=== PATIENT | male | born 1935 | race Caucasian/White ===

== ENCOUNTER 2016-11-07 14:17 | Inpatient (IN) | payer OTHER ==
[~2016-11-07] VITALS: Ht 182.9 cm; Wt 86.2 kg
[~2016-11-07 14:17] MED LIST: ACYCLOVIR400 MG PO; ALENDRONATE SOD70 M2 PO; AMBIEN10 MG PO; AMOXICOT500 MG PO; APAP/HYDROCODON1 T13 PO; BETHANECHOL CHL10 MG PO; CARAFATE1 GM PO; CAT0.1 PO; CLARITIN10 MG PO; CLINDAMYCIN HC300 MG PO; CLONIDINE HCL0.1 MG PO; EVISTA60 MG PO; FLO4 PO; IBUPROFEN800 MG PO; LISINOPRIL20 MG PO; MIRTAZAPINE15 M2 PO; MORPHINE SULFAT15 MG PO; MOTRIN800 MG PO; NAPROSYN375 MG PO; NAPROXEN375 MG PO; NEU300 PO; NOR10T PO; NORCO1 TA2 PO; SULFAZINE500 MG PO; VITAMIN D32000 I2 PO; ZESTRIL20 MG PO
[2016-11-07] MEDS ORDERED: NAPROXEN375 MG PO (14:31)
[2016-11-07] MEDS ORDERED: LISINOPRIL30 M1 PO (14:31)
[2016-11-07] MEDS ORDERED: AMITIZA8 MC1 PO (14:31)
[2016-11-07] MEDS ORDERED: AMBIEN5 MG PO (14:31)
[2016-11-07] MEDS ORDERED: RESTORIL15 MG PO (14:32)
[2016-11-07] MEDS ORDERED: CATAPRES0.1 MG PO (14:32)
[2016-11-07] MEDS ORDERED: MOVANTIK25 MG PO (14:33)
[2016-11-07] MEDS ORDERED: PAROXETINE HCL20 M1 PO (14:33)
[2016-11-07] MEDS ORDERED: ATROVENT H0.017 MG/1 INH (14:34)
[2016-11-07] MEDS ORDERED: TAMSULOSIN HYD0.4 M1 PO (14:34)
[2016-11-07] MEDS ORDERED: MORPHINE SULFAT15 M7 PO (14:34)
[2016-11-07] MEDS ORDERED: VENTOLIN H0.09 MG/A1 INH (14:35)
[2016-11-07] MEDS ORDERED: QVAR0.08 MG/Ac IH (14:36)
[2016-11-07 15:26] LABS: PLATELET COUNT 142 x10^3mcL (130-400)
[2016-11-07 15:35] LABS: CALCIUM 8.9 mg/dL (8.5-10.1); CHLORIDE SERUM 113 mmol/L (98-107); CREATININE SERUM 1.1 mg/dL (0.7-1.3); GLUCOSE SERUM 107 mg/dL (74-106); POTASSIUM SERUM 3.4 mmol/L (3.5-5.1); SODIUM SERUM 143 mmol/L (136-145)
[2016-11-07 15:39] LABS: ALKALINE PHOSPHATASE 54 U/L (46-116); ALT/SGPT 25 U/L (16-63); AST/SGOT 21 U/L (15-37); BILIRUBIN TOTAL 0.82 mg/dL (0.20-1.00); TOTAL PROTEIN, SERUM 6.8 g/dL (6.4-8.2)
[2016-11-07 15:40] LABS: RED CELL DISTRIBUTION WIDTH 15.4 % (11.5-14.5)
[2016-11-07 15:51] LABS: BAND NEUTROPHIL 3 % (0-10); BASOPHIL 0 % (0-2); MONOCYTE 12 % (0-7); SEGMENTED NEUTROPHILS 75 % (37-75)
[2016-11-07 15:52] LABS: rbc morphology (normal/abnorm) ABNORMAL (NORMAL)
[2016-11-07 17:52] VITALS: BP 143/66
[2016-11-07 17:55] VITALS: BP 143/66
[2016-11-07 18:57] LABS: T3 TOTAL 0.79 ng/mL
[2016-11-07 19:06] LABS: CHOLESTEROL/HDL RATIO 2.2
[2016-11-07 19:21] LABS: FREE T4 1.16 ng/dL (0.76-1.46); FREE THYROXINE INDEX 2.4 ug/dL (1.4-4.5); T4(THYROXINE) 7.2 ug/dL (4.7-13.3)
[2016-11-07 21:23] VITALS: BP 161/71
[2016-11-08 05:49] VITALS: BP 138/70
[2016-11-08 06:20] LABS: UA SPECIFIC GRAVITY 1.025 (1.005-1.035); microscopic required? YES; urine erythrocyte TRACE (NEGATIVE)
[2016-11-08 06:26] LABS: CALCIUM 8.5 mg/dL (8.5-10.1); CHLORIDE SERUM 112 mmol/L (98-107); CREATININE SERUM 1.4 mg/dL (0.7-1.3); GLUCOSE SERUM 151 mg/dL (74-106); MAGNESIUM 1.9 mg/dL (1.8-2.4); PHOSPHOROUS 2.8 mg/dL (2.5-4.9); POTASSIUM SERUM 3.3 mmol/L (3.5-5.1); SODIUM SERUM 143 mmol/L (136-145)
[2016-11-08 07:18] LABS: BASOPHIL % 0 % (0-2); PLATELET COUNT 152 x10^3mcL (130-400); RED CELL DISTRIBUTION WIDTH 15.2 % (11.5-14.5)
[2016-11-08 10:10] VITALS: BP 139/64
[2016-11-08 13:44] VITALS: BP 148/73
[2016-11-08 17:41] VITALS: BP 167/74
[2016-11-08 19:20] VITALS: BP 169/77
[2016-11-09 05:12] VITALS: BP 154/71
[2016-11-09 09:55] VITALS: BP 140/63
[2016-11-09 13:17] VITALS: BP 158/80
[2016-11-09 17:49] VITALS: BP 194/96
[2016-11-09 21:12] VITALS: BP 172/97
[2016-11-10 06:19] LABS: PLATELET COUNT 185 x10^3mcL (130-400)
[2016-11-10 06:37] LABS: CALCIUM 8.7 mg/dL (8.5-10.1); CARBON DIOXIDE 19.5 mmol/L (21-32); CHLORIDE SERUM 110 mmol/L (98-107); CREATININE SERUM 1.2 mg/dL (0.7-1.3); GLUCOSE SERUM 114 mg/dL (74-106); MAGNESIUM 1.9 mg/dL (1.8-2.4); PHOSPHOROUS 3.5 mg/dL (2.5-4.9); SODIUM SERUM 139 mmol/L (136-145)
[2016-11-10 06:40] VITALS: BP 184/83
[2016-11-10 07:21] LABS: RED CELL DISTRIBUTION WIDTH 15.3 % (11.5-14.5)
[2016-11-10 08:00] VITALS: BP 119/63
[2016-11-10 09:45] LABS: BAND NEUTROPHIL 12 % (0-10); BASOPHIL 0 % (0-2); MONOCYTE 7 % (0-7); SEGMENTED NEUTROPHILS 75 % (37-75)
[2016-11-10 09:46] LABS: PLATELET MORPHOLOGY LARGE PLATELET SEEN; rbc morphology (normal/abnorm) ABNORMAL (NORMAL); tear drop cell (dacryocyte) 1+
[2016-11-10 13:30] VITALS: BP 133/71
[2016-11-10 18:22] VITALS: BP 155/80
[2016-11-10 21:43] VITALS: BP 122/71
[2016-11-11 05:45] VITALS: BP 160/94
[2016-11-11 06:13] VITALS: BP 160/86
[2016-11-11 07:15] LABS: BASOPHIL % 0.3 % (0-2); PLATELET COUNT 209 x10^3mcL (130-400); RED CELL DISTRIBUTION WIDTH 15.4 % (11.5-14.5)
[2016-11-11 07:24] LABS: CALCIUM 8.8 mg/dL (8.5-10.1); CARBON DIOXIDE 24.7 mmol/L (21-32); CHLORIDE SERUM 106 mmol/L (98-107); CREATININE SERUM 1.1 mg/dL (0.7-1.3); GLUCOSE SERUM 87 mg/dL (74-106); PHOSPHOROUS 3.7 mg/dL (2.5-4.9); POTASSIUM SERUM 4.5 mmol/L (3.5-5.1); SODIUM SERUM 139 mmol/L (136-145)
[2016-11-11 09:46] VITALS: BP 134/72
[2016-11-11] MEDS ORDERED: LEVAQUIN750 MG PO (12:22)
[2016-11-11] MEDS ORDERED: CLEOCIN HCL300 MG PO (12:22)
[2016-11-11] MEDS ORDERED: LAC PO ×2 (12:23→14:23)
[2016-11-11 12:54] VITALS: BP 151/89
[2016-11-11 14:11] VITALS: BP 151/89
[2016-11-11] MEDS ORDERED: IPRATROPIUM BROM3 M2 HHN (14:18)
[2016-11-11] MEDS ORDERED: ZES20 PO (14:19)
[2016-11-11] MEDS ORDERED: FLO4 PO (14:20)
[2016-11-11] MEDS ORDERED: APAP/HYDROCODON1 T13 PO (14:20)
[2016-11-11] MEDS ORDERED: NOR5 PO (14:20)
[2016-11-11] MEDS ORDERED: MONTELUKAST SOD10 M1 PO (14:21)
[2016-11-11] MEDS ORDERED: PULMICORT0.25 MG/2 IH (14:21)
[2016-11-11] MEDS ORDERED: MUCINEX600 MG PO (14:22)
[2016-11-11] MEDS ORDERED: COL100 PO (14:22)
[2016-11-11] MEDS ORDERED: MIRUD PO (14:23)
[2016-11-11] MEDS ORDERED: SEN PO (14:23)
[2016-11-11] MEDS ORDERED: MEDDP PO (15:42)
== END 2016-11-11 16:12 | disposition home health service (06) | DRG 871 ==
LOC: ED 14:17 → DU 16:28
PROVIDERS: Emergency Medicine; ADMIT Family Medicine
DX: A41.9 Sepsis, unspecified organism (principal); J69.0 Pneumonitis due to inhalation of food and vomit; N17.0 Acute kidney failure with tubular necrosis; J44.1 Chronic obstructive pulmonary disease with (acute) exacerbation; R65.20 Severe sepsis without septic shock; I10 Essential (primary) hypertension; I25.10 Atherosclerotic heart disease of native coronary artery without angina pectoris; I73.9 Peripheral vascular disease, unspecified; R73.03 Prediabetes; E86.0 Dehydration; M54.9 Dorsalgia, unspecified; E87.6 Hypokalemia; G89.29 Other chronic pain; N40.0 Benign prostatic hyperplasia without lower urinary tract symptoms; G47.00 Insomnia, unspecified; I25.2 Old myocardial infarction; Z68.25 Body mass index [BMI] 25.0-25.9, adult; Z89.512 Acquired absence of left leg below knee; Z85.05 Personal history of malignant neoplasm of liver; Z86.73 Personal history of transient ischemic attack (TIA), and cerebral infarction without residual deficits
CPT/HCPCS: 83880; 84439; 97110-GP; 97116-GP; 97530-GP; J0132; J1956; J2270; J2920; J2930; J3490; J7030; J7613; J7620; J7633; J7644; Q0092

== ENCOUNTER 2017-06-12 16:11 | Emergency (ER) | payer OTHER ==
[~2017-06-12 16:11] MED LIST changes: +AMBIEN5 MG PO; +AMITIZA8 MC1 PO; +ATROVENT H0.017 MG/1 INH; +CATAPRES0.1 MG PO; +CLEOCIN HCL300 MG PO; +COL100 PO; +IPRATROPIUM BROM3 M2 HHN; +LAC PO; +LEVAQUIN750 MG PO; +LISINOPRIL30 M1 PO; +MEDDP PO; +MIRUD PO; +MONTELUKAST SOD10 M1 PO; +MORPHINE SULFAT15 M7 PO; +MOVANTIK25 MG PO; +MUCINEX600 MG PO; +NOR5 PO; +PAROXETINE HCL20 M1 PO; +PULMICORT0.25 MG/2 IH; +QVAR0.08 MG/Ac IH; +RESTORIL15 MG PO; +SEN PO; +TAMSULOSIN HYD0.4 M1 PO; +VENTOLIN H0.09 MG/A1 INH; +ZES20 PO
[2017-06-12 18:20] VITALS: BP 106/61
== END 2017-06-12 18:51 | disposition home or self-care (01) ==
LOC: ED 16:11
DX: S83.91XA Sprain of unspecified site of right knee, initial encounter (principal); J45.909 Unspecified asthma, uncomplicated; J44.9 Chronic obstructive pulmonary disease, unspecified; I10 Essential (primary) hypertension; M06.9 Rheumatoid arthritis, unspecified; Z86.73 Personal history of transient ischemic attack (TIA), and cerebral infarction without residual deficits; I25.2 Old myocardial infarction; W18.30XA Fall on same level, unspecified, initial encounter; Y93.89 Activity, other specified; Y92.89 Other specified places as the place of occurrence of the external cause; Y99.8 Other external cause status
CPT/HCPCS: J1885

== ENCOUNTER 2018-07-14 11:07 | Inpatient (IN) | payer OTHER ==
[~2018-07-14] VITALS: Ht 177.8 cm; Wt 90.7 kg
[2018-07-14 11:17] VITALS: Ht 177.8 cm; Wt 90.7 kg
--- NOTE | 2018-07-14 11:31 | NUR ---
PT BIB [facility] WITH C/O R BIG TOE PAIN, COUGH AND RLQ PAIN. AT BEDSIDE. AT BEDSIDE PT IS AAOX4, RESPS E/U, SKIN IS PINK, WARM AND DRY. PT PLACED ON FULL CM. FAMILY ORIENTED TO ROOM USE OF CALL MCDONOUGH AND BED IN LOWEST POSITION. ED PHYSICIAN AT BEDSIDE FOR PATIENT EVALUATION. MEDICAL SCREENING EXAMINATION COMPLETED BY ED PHYSICIAN DR. FARRAR.
--- NOTE | 2018-07-14 12:10 | NUR ---
PT C/O PAIN. DR. FARRAR NOTIFIED. SEE EMAR FOR ORDER.
[2018-07-14 12:16] LABS: BASOPHIL % 0.3 % (0-2); PLATELET COUNT 131 x10^3mcL (130-400)
[2018-07-14 12:32] LABS: CARBON DIOXIDE 24.5 mmol/L (21-32); CHLORIDE SERUM 109 mmol/L (98-107); CREATININE SERUM 1.3 mg/dL (0.7-1.3); GLUCOSE SERUM 125 mg/dL (74-106); POTASSIUM SERUM 3.2 mmol/L (3.5-5.1); SODIUM SERUM 143 mmol/L (136-145)
[2018-07-14 12:36] LABS: ALKALINE PHOSPHATASE 40 U/L (46-116); ALT/SGPT 26 U/L (16-63); AST/SGOT 23 U/L (15-37); BILIRUBIN TOTAL 0.6 mg/dL (0.20-1.00); TOTAL PROTEIN, SERUM 6.5 g/dL (6.4-8.2)
[2018-07-14 12:37] LABS: ALBUMIN 2.8 g/dL (3.4-5.0)
--- NOTE | 2018-07-14 13:50 | NUR ---
PT ATTEMPTING TO URINATE WITH URINAL. SON AT BEDSIDE.
--- NOTE | 2018-07-14 14:22 | NUR ---
ADMISSION ORDERS RECEIVED FROM DR. JEFFRIES.
--- NOTE | 2018-07-14 15:46 | NUR ---
PT UNABLE TO URINATE STILL. DR. FARRAR MADE AWARE.
[2018-07-14] MEDS ORDERED: TRAZODONE50 M1 PO (16:06)
[2018-07-14] MEDS ORDERED: AMLODIPINE BESY10 M2 PO (16:07)
[2018-07-14] MEDS ORDERED: D3-50001 TAB PO (16:08)
[2018-07-14] MEDS ORDERED: GOOD SENSE OMEP20 MG PO (16:09)
--- NOTE | 2018-07-14 16:18 | NUR ---
REPORT GIVEN TO EDIE KASPER ON TELE UNIT.
--- NOTE | 2018-07-14 16:28 | NUR ---
RECEIVED PT FROM ER. PT IS STABLE. ADMITTING NURSE IS COLLECTING THE HISTORY AND DOING ASSESSMENT. PT DENIES PAIN. FAMILY AT BEDSIDE. WILL CONTINE MONITOR.
--- NOTE | 2018-07-14 16:40 | NUR ---
SEEN THE PT AND SPOKE WITH PT AND FAMILY. AWARE PT'S TROP IS 1.733. HE STARTED LOVENOX SQ. ALSO HE IS AWARE ABOUT K=3.2 AND PT RECEIVED KCL PO FROM ER. HE IS AWARE ALL THE LABS AND XRAY'S RESULT.
[2018-07-14 16:52] VITALS: BP 107/57
--- NOTE | 2018-07-14 17:03 | NUR ---
RECEIVED PT FROM ED VIA LADAN. ORIENTED PT TO ROOM AND SURROUNDINGS. IV NOTED TO LAC PATENT AND INTACT. TELE 9 PLACED ON PT READING SA WITH PAC. INSTRUCTED PT ON THE USE OF CALL LIGHT FOR ASSISTANCE. ENDORSED PT TO PRIMARY NURSE FREDDIE
[2018-07-14 17:48] VITALS: BP 107/57
--- NOTE | 2018-07-14 19:00 | NUR ---
PT RESTING IN BED COMFORTABLY. DENIES PAIN. STABLE. GAVE REPORT TO GRINDING WHEEL FACER NURSE.
--- NOTE | 2018-07-14 19:43 | NUR ---
RECEIVED PATIENT IN BED AWAKE, ALERT AND ORIENTED WITH NO SIGN OF ACUTE DISTRESS, BREATHING EASY AND NONLABOR SATTING AT 100% ON O2 AT 2L VIA NC. TELE#9 SA WITH PAC ON MONITOR, DENIES CHEST DISCOMFORT AT THIS TIME. IV HEPLOCK TO LAC, FLUSHED WITH NS. WILL CONTINUE TO MONITOR. FAMILY MEMBERS AT BEDSIDE.
[2018-07-14 21:09] VITALS: BP 113/54
--- NOTE | 2018-07-14 21:25 | NUR ---
C/O ABDOMINAL PAIN NORCO 1 TAB PO GIVEN PRESCRIBED. WILL CONTINUE TO MONITOR.
--- NOTE | 2018-07-14 23:15 | NUR ---
HAD BM X1 SOFT IN LARGE AMOUNT. APPEARS SLEEPING THIS TIME AFTER RESTORIL PO WAS GIVEN. WILL CONTINUE TO MONITOR.
[2018-07-15 04:59] VITALS: BP 98/51
--- NOTE | 2018-07-15 05:19 | NUR ---
C/O ABDOMINAL PAIN X1 THE ENTIRE SHIFT AND MEDICATED PRESCRIBED. HAD BM X2 SOFT IN LARGE AMOUNT. ALL NEEDS ATTENDED.
--- NOTE | 2018-07-15 06:08 | NUR ---
HAD ANOTHE BM SOFT IN SMALL AMOUNT. WILL ENDORSE CONTINOUS CARE TO AM SHIFT.
[2018-07-15 07:17] LABS: BASOPHIL % 0.2 % (0-2); PLATELET COUNT 117 x10^3mcL (130-400); RED CELL DISTRIBUTION WIDTH 14.3 % (11.5-14.5)
[2018-07-15 07:33] LABS: CALCIUM 8.3 mg/dL (8.5-10.1); CARBON DIOXIDE 22.6 mmol/L (21-32); CHLORIDE SERUM 110 mmol/L (98-107); CREATININE SERUM 1.1 mg/dL (0.7-1.3); GLUCOSE SERUM 87 mg/dL (74-106); MAGNESIUM 2.2 mg/dL (1.8-2.4); POTASSIUM SERUM 4.1 mmol/L (3.5-5.1); SODIUM SERUM 142 mmol/L (136-145)
--- NOTE | 2018-07-15 08:00 | NUR ---
SHIFT ASSESEMENT DONE. PATIENT ALERT/ORIENTED X3. TELE#9, SB; HR = 54. DENIED CHEST PAIN. BREATHING SOUND DIMINISHED KARON. O2 SAT 99% ON 2L VIA N/C. NO SOB. ABD ROUND/SOFT. HERNIA TO RT ABD NOTED. DENIED ABD PAIN. HAD LOOSE THIS AM. TOLERTED CARDIAC DIET BREAKFAST. NO N/V. VOID TO URINAL OR PAD. LLE BKA. BED RESTING. IVHL'D TO LAC. CALL LIGHT IN REACH.
[2018-07-15 09:48] VITALS: BP 133/53
--- NOTE | 2018-07-15 12:15 | NUR ---
C/O RLQ ABD PAIN AND LLE PAIN. 09/21. NORCO 7.5/325 PO GIVEN. CONTINUE MONITOR. FAMILY AT BED SIDE NOW.
[2018-07-15 13:21] VITALS: BP 109/49
--- NOTE | 2018-07-15 15:35 | NUR ---
DR. JEFFRIES CAME TO SEE PATIENT. BALDWIN OF PATIENT'S ABD HERNIA AND DIARRHEA. NEW ORDER OF CT ABD W/O CONTRAST WRITTEN. ORDER OF ABD BINDER APPLICATION CARRIED OUT. PATIENT HAD 2ND LOOSE BM TODAY.
[2018-07-15 17:35] VITALS: BP 96/44
--- NOTE | 2018-07-15 19:00 | NUR ---
TOLERATED DIET. DENIED CHEST PAIN. VOID 550 CC. HAD BM X2 THIS SHIFT. FAMILY AT BED SIDE. ENDORSED CARE TO [facility] NURSE.
--- NOTE | 2018-07-15 19:52 | NUR ---
RECEIVED PATIENT IN BED AWAKE, ALERT WITH NO SIGN OF DISTRESS. BREATHING EASY AND NONLABOR SATTING AT 97% ON 02 AT 2L VIA NC. TELE#9 SA WITH PACM ON MONITOR. TRACED EDEMA TO RLE NOTED. ABDOMEN ROUND AND NONTENDER WITH ABDOMINAL BINDER IN PLACE. IV TO LAC HEPLOCK AND FLUSHED WITH NS. FAMILY MEMBERS AT BEDSIDE. WILL CONTINUE TO MONITOR.
[2018-07-15 21:08] VITALS: BP 105/53
--- NOTE | 2018-07-15 21:29 | NUR ---
C/O ABDOMINAL PAIN MEDICATED WITH NORCO 1 TAB PO PRESCRIBED. WILL CONTINUE TO MONITOR.
--- NOTE | 2018-07-15 22:03 | NUR ---
RELIEF NOTED PER PATIENT AFTER PAIN MEDS WAS GIVEN. WILL CONTINUE TO MONITOR.
--- NOTE | 2018-07-16 05:18 | NUR ---
NO SIGNIFICANT CHANGES IN PATIENT CONDITION NOTED. C/O ABDOMINAL PAIN X1 THE ENTIRE SHIFT AND MEDICATED PRESCRIBED. ALL NEEDS ATTENDED.
[2018-07-16 05:20] VITALS: BP 120/49
--- NOTE | 2018-07-16 06:41 | NUR ---
WENT DOWN FOR CT SCAN ABDOMEN BROUGHT BY BED ACCOMPANIED BY TECH.
--- NOTE | 2018-07-16 07:00 | NUR ---
BACK FROM CT SCAN. WILL ENDORSE CONTINOUS CARE TO AM SHIFT.
--- NOTE | 2018-07-16 08:00 | NUR ---
ALERT AND ORIENTED. SITTING UP IN BED FOR BREAKFAST. BREATHING FREELY ON 3L NC. DENIES ANY PAIN. SL TO LEFT AC. TELE # 9 SR W PACS. ABLE TO TURN AND REPOSITION SELF ASSIST PRN. VSS. CALL LIGHT WITH IN REACH.
[2018-07-16 08:50] VITALS: BP 148/65
[2018-07-16 08:55] LABS: CALCIUM 8.4 mg/dL (8.5-10.1); CARBON DIOXIDE 23.6 mmol/L (21-32); CHLORIDE SERUM 106 mmol/L (98-107); CREATININE SERUM 1.1 mg/dL (0.7-1.3); GLUCOSE SERUM 103 mg/dL (74-106); MAGNESIUM 2.3 mg/dL (1.8-2.4); SODIUM SERUM 139 mmol/L (136-145)
[2018-07-16 12:50] VITALS: BP 143/51
--- NOTE | 2018-07-16 13:37 | NUR ---
ISIDRA TEMP 101.8. APPLIED ICE PACKS.
[2018-07-16 17:50] VITALS: BP 136/61
--- NOTE | 2018-07-16 19:05 | NUR ---
RESTING QUIETLY WITH FAMILY AT BEDSIDE. POOR APPETITE. PREFERS FLUIDS. ASSIST WITH ALL ADL'S. PT SAT UP IN CHAIR THIS AM WITH ASSIST FROM P.T. CALL LIGHT WITHIN REACH.TELE # 9 SR W PAC'S.
--- NOTE | 2018-07-16 19:48 | NUR ---
RECEIVED PT FROM DAY SHIFT RN. PT AAOX4. TELE 9 SR HR 76. PT DENIES CHEST PAIN, HEADACHE OR DIZZINESS. LUNG SOUNDS CTA 3L/MIN NC, PT HAS A COUGH. NO SIGNS OF RESP DISTRESS NOTED. LEFT ABOVE THE KNEE AMPUTATION. PT INCONTINENT. IV LAC PATENT, SL. CALL BUTTON WITHIN REACH. SAFETY PRECAUTIONS IN PLACE. WILL CONTINUE TO MONITOR. FAMILY AT BEDSIDE.
[2018-07-16 20:58] VITALS: BP 157/73
--- NOTE | 2018-07-16 21:35 | NUR ---
PT ASKING FOR SLEEPING MEDICATION, MEDICATED PER EMAR. WILL CONTINUE TO MONITOR.
[2018-07-16 22:11] VITALS: BP 149/70
--- NOTE | 2018-07-16 22:11 | NUR ---
PT DENIES ANY CHEST PAIN OR PRESSURE. PT STATES HE FEELS OK AT THE MOMENT. FELT BETTER AFTER BREATHING TREATMENT. VS STABLE. CALL BUTTON WITHIN REACH. WILL CONTINUE TO MONITOR.
--- NOTE | 2018-07-16 23:15 | NUR ---
DR JEFFRIES MADE AWARE OF PT REQUESTING COUGH MEDICAITON, NEW ORDER CARRIED OUT.
--- NOTE | 2018-07-16 23:31 | NUR ---
PT AWAKE, DENIES ANY PAIN. NO SIGNS OF DISTRESS NOTED. NC 3L/MIN 02SAT 95%. CALL BUTTON WITHIN REACH. SAFETY PRECAUTIONS IN PLACE. WILL CONTINUE TO MONITOR.
[2018-07-17] VITALS (7 sets, daily range): BP systolic 127–150; BP diastolic 58–64
--- NOTE | 2018-07-17 04:20 | NUR ---
PT AWAKE DENIES ANY PAIN. NC 3L/MIN NO SIGNS OF DISTRESS NOTED. SAFETY PRECAUTIONS IN PLACE. WILL CONTINUE TO MONITOR.
--- NOTE | 2018-07-17 04:58 | NUR ---
PT SLEPT ON AND OFF THROUGHOUT THE NIGHT WITH NO SIGNS OF DISTRESS. PT ON 3L/MIN NC. PT REQUESTED COUGH MEDICAITON, MEDICATED PER EMAR WITH SOME RELIEF. PT IV LAC PATENT, SL. ABD BINDER IN PLACE. PT INCONTINENT. PT DENIED ANY PAIN THROGUHOUT THE NIGHT. SAFETY PRECAUTIONS IN PLACE. WILL CONTINUE TO MONITOR AND ENDORSE CARE TO DAY SHIFT RN.
[2018-07-17 06:39] LABS: CALCIUM 8.4 mg/dL (8.5-10.1); CARBON DIOXIDE 24.6 mmol/L (21-32); CHLORIDE SERUM 105 mmol/L (98-107); CREATININE SERUM 0.9 mg/dL (0.7-1.3); GLUCOSE SERUM 96 mg/dL (74-106); MAGNESIUM 2.1 mg/dL (1.8-2.4); POTASSIUM SERUM 4.1 mmol/L (3.5-5.1); SODIUM SERUM 136 mmol/L (136-145)
--- NOTE | 2018-07-17 07:28 | NUR ---
PT RESTING, NO SIGNS OF DISTRESS NOTED. SAFETY PRECAUTIONS IN PLACE. ENDORSED CARE TO DAY SHIFT RN, ALL QUESTIONS ADDRESSED.
--- NOTE | 2018-07-17 07:45 | NUR ---
RECEIVED PT FROM RN OCCUPATIONAL. PT ASLEEP BUT AROUSABLE. PT ON TELE #9. DENIES CHEST PAIN/HEADACHE. PT ON ROOM AIR, LUNGS CTA. NO RESP DISTRESS NOTED. PT INC, NO APPARENT ISSUES WITH ELIMINATION AT THIS TIME. PT HAS LEFT AKA. IV ACCESS LAC, HEP LOCKED AT THIS TIME. PERIPHERAL PULSES PALPABLE, NO EDEMA NOTED. SAFETY MEASURES IN PLACE, BED LOW AND LOCKED. CALL LIGHT WITHIN REACH.
[2018-07-17 13:29] LABS: ALKALINE PHOSPHATASE 61 U/L (46-116); ALT/SGPT 27 U/L (16-63); AST/SGOT 29 U/L (15-37); BILIRUBIN TOTAL 0.61 mg/dL (0.20-1.00); CALCIUM 8.6 mg/dL (8.5-10.1); CARBON DIOXIDE 25.7 mmol/L (21-32); CHLORIDE SERUM 103 mmol/L (98-107); GLUCOSE SERUM 106 mg/dL (74-106); POTASSIUM SERUM 3.8 mmol/L (3.5-5.1); SODIUM SERUM 136 mmol/L (136-145); TOTAL PROTEIN, SERUM 6.6 g/dL (6.4-8.2)
[2018-07-17 13:34] LABS: ALBUMIN 2.5 g/dL (3.4-5.0)
--- NOTE | 2018-07-17 13:46 | NUR ---
PT FAMILY REQUESTING VITALS. BP 140/63 HR 66. PT FAMILY SAYS PT IS IN PAIN. PT STATES HE HAS PAIN IN HIS ABDOMEN, ACTIVE BOWEL SOUNDS NOTED. PT FAMILY REPORTS NO BM SINCE 07/15/18. PT REPORTS HE USUALLY DOES AN ENEMA AT HOME. OFFERED PT TO CALL DR FOR AN ORDER, PT REFUSES AT THIS TIME, WANTS TO DO ENEMA AT HOME PER PT. EDUCATION PROVIDED. NORCO ADMINISTERED FOR PAIN PRN (SEE EMAR) WILL MONITOR
[2018-07-17 14:17] LABS: BAND NEUTROPHIL 1 % (0-10); BASOPHIL 0 % (0-2); MONOCYTE 8 % (0-7); PLATELET MORPHOLOGY PLATELETS DECREASED; SEGMENTED NEUTROPHILS 68 % (37-75); rbc morphology (normal/abnorm) NORMAL (NORMAL)
[2018-07-17 14:34] LABS: PLATELET COUNT 138 x10^3mcL (130-400); RED CELL DISTRIBUTION WIDTH 13.9 % (11.5-14.5)
--- NOTE | 2018-07-17 14:56 | NUR ---
CALLED AND SPOKE TO AND REPORTED TO HIM [facility] RESULT. ORDERED ZOSYN TO BE GIVEN NOW AND RIGHT AFTER THE ABX WILL DISCHARGE PT HOME WITH HOME HEALTH P.T. ORDERED. MAREK IRIZARRY ASSIGNED TO THIS PT MADE AWARE OF ABOVE.
--- NOTE | 2018-07-17 16:25 | NUR ---
PT AWAKE IN BED. COMPLAINING OF A NON-PRODUCTIVE COUGH. PHENERGAN/CODEINE ADMINISTERED ORDERED PRN (SEE EMAR). PT STATES PHLEM GETS STUCK IN HIS THROAT. LUNGS CTA. NO RESP DISTRESS NOTED AT THIS TIME.
--- NOTE | 2018-07-17 17:32 | NUR ---
PT STATES COUGH HAS IMPROVED SINCE PRN COUGH MEDICINE BUT IS STILL THERE. WILL CONT TO MONITOR.
--- NOTE | 2018-07-17 18:25 | NUR ---
PT DISCHARGED TO HOME VIA WHEELCHAIR IN FAMILY CAR. PT DAUGHTER AND WITH PATIENT. PT HAS OXYGEN AT HOME WHICH FAMILY STATES IS 5 MIN AWAY. O2 SAT ON ROOM AIR 90-91%. INSTRUCTED FAMILY TO APPLY OXYGEN SOON THEY ARRIVE HOME. VERBALIZED UNDERSTANDING. EDUCATION PROVIDED REGARDING DISCHARGE INSTRUCTIONS AND MEDICATIONS GIVEN TO FAMILY AND PATIENT. VERBALIZED UNDERSTANDING. PT TELE #9 RETURNED TO PRODUCT PICKER. IV REMOVED WITH CATHETER INTACT. NO REDNESS, BLEEDING OR SWELLING NOTED. SAFETY MAINTAINED. NO ACUTE DISTRESS AT THIS TIME.
== END 2018-07-17 18:31 | disposition home health service (06) | DRG 444 ==
LOC: ED 11:07 → EDBEDREQ 14:24 → DU 14:24
PROVIDERS: Emergency Medicine; Internal Medicine Pulmonary Disease; ADMIT Internal Medicine Pulmonary Disease
DX: K80.20 Calculus of gallbladder without cholecystitis without obstruction (principal); I21.4 Non-ST elevation (NSTEMI) myocardial infarction; I11.9 Hypertensive heart disease without heart failure; I25.10 Atherosclerotic heart disease of native coronary artery without angina pectoris; M79.674 Pain in right toe(s); I73.9 Peripheral vascular disease, unspecified; J45.909 Unspecified asthma, uncomplicated; K42.9 Umbilical hernia without obstruction or gangrene; M81.0 Age-related osteoporosis without current pathological fracture; I25.2 Old myocardial infarction; Z66 Do not resuscitate; Z68.24 Body mass index [BMI] 24.0-24.9, adult; Z89.512 Acquired absence of left leg below knee; Z85.05 Personal history of malignant neoplasm of liver; Z86.73 Personal history of transient ischemic attack (TIA), and cerebral infarction without residual deficits; Z53.09 Procedure and treatment not carried out because of other contraindication
CPT/HCPCS: 82962; 83880; 97110-GP; 97530-GP; J1650; J1885; J2270; J2405; J2543; J7030; J7050; J7620; J7626; Q0092